=== PATIENT | female | born 1960 | race Hispanic/Latino ===

== ENCOUNTER 2024-03-29 06:00 | Day surgery (SDC) | payer BC, MEDICAID ==
[2024-03-29] VITALS (9 sets, daily range): BP systolic 95–125; BP diastolic 5–77; PULSE 58–83; RESP 14–17; TEMP 97–97.6
[~2024-03-29] VITALS: Ht 157.5 cm; Wt 76.7 kg
[~2024-03-29 06:00] MED LIST: ATOR10 PO; CLON1TAB12 PO; LEVO-70 PO; LEVO175T9 PO; METO-408 PO; PENT400T72 PO; VALA100031 PO
[2024-03-29] MEDS ORDERED: 0.9%NACL 1000ML 1,000 ML IV ONE (06:18)
[2024-03-29] MEDS ORDERED: ATEN50TA PO (07:53)
[2024-03-29] MEDS ORDERED: VIBE75TA PO (07:53)
[2024-03-29] MEDS ORDERED: FAMO40TA7 PO (07:53)
[2024-03-29] MEDS ORDERED: SERT-440 PO (08:05)
[2024-03-29] MEDS ORDERED: FESO4TAB3 PO (08:05)
[2024-03-29] MEDS ORDERED: DEXLANSOPRAZOLE PO (08:05)
[2024-03-29] MEDS ORDERED: FLUT1AER IH (08:05)
[2024-03-29] MEDS ORDERED: MONT-39 PO (08:05)
[2024-03-29] MEDS ORDERED: APIX2.5T PO (08:05)
[2024-03-29] MEDS ORDERED: MECL-226 PO (08:05)
[2024-03-29] MEDS ORDERED: METO5SOL26 PO (08:05)
[2024-03-29] MEDS ORDERED: LEVO137C4 PO (08:05)
[2024-03-29] MEDS ORDERED: FURO40TA5 PO (08:05)
[2024-03-29] MEDS ORDERED: BUDE10.2 IH (08:05)
[2024-03-29] MEDS ORDERED: CLON0.1T PO (08:05)
[2024-03-29] MEDS ORDERED: proPOFol 10 MG/ML 20ML VIAL IV ONE (08:19)
[2024-03-29] MEDS ORDERED: LIDOCAINE HCL 1% 20 ML VIAL ONE (08:19)
[2024-03-29] MEDS ORDERED: ePHEDrine SULFate 50 MG/ML AMPULE ONE (08:29)
== END 2024-03-29 09:45 | disposition home or self-care (01) ==
LOC: ENDO 06:00 → DAH 06:00 → ENDO 09:45
PROVIDERS: ATTEND Internal Medicine Gastroenterology
DX: R13.10 Dysphagia, unspecified (principal); R12 Heartburn; K29.70 Gastritis, unspecified, without bleeding; I10 Essential (primary) hypertension; K21.9 Gastro-esophageal reflux disease without esophagitis; F41.9 Anxiety disorder, unspecified; F32.A Depression, unspecified; M19.90 Unspecified osteoarthritis, unspecified site; Z86.711 Personal history of pulmonary embolism; Z85.850 Personal history of malignant neoplasm of thyroid; Z90.49 Acquired absence of other specified parts of digestive tract; Z90.710 Acquired absence of both cervix and uterus; M85.80 Other specified disorders of bone density and structure, unspecified site; Z88.8 Allergy status to other drugs, medicaments and biological substances; Z91.013 Allergy to seafood; Z79.01 Long term (current) use of anticoagulants; Z79.899 Other long term (current) drug therapy
CPT/HCPCS: 43239; J7030; J3490; J2704; A4620; A4215 ×2; A4223; A4222; A4221; A4663; A4606